=== PATIENT | male | born 1930 | race Caucasian/White ===

== ENCOUNTER 2016-11-25 07:50 | Day surgery (SDC) | payer MEDICARE, OTHER ==
[~2016-11-25] VITALS: Ht 152.4 cm; Wt 53.2 kg
[2016-11-25 09:04] VITALS: Ht 152.4 cm; Wt 53.2 kg
[2016-11-25] MEDS ORDERED: [UNRECOGNIZED DRUG - OTHER] (09:10)
[2016-11-25] MEDS ORDERED: PROPOFOL 20 ML ONE (09:29)
[2016-11-25] MEDS ORDERED: LABETALOL HCL 20MG INJ ONE (09:37)
[2016-11-25 10:13] VITALS: BP 157/88; PULSE 55; RESP 15
--- NOTE | 2016-11-25 10:21 | OPPN ---
Date/Time of Note Date/Time of Note DATE: 11/25/16 TIME: 10:18 Operative Report Preoperative Diagnosis Change in bowel habit Weight loss Postoperative Diagnosis Internal hemorrhoids Poor prep No gross neoplasm is identified Operation/Procedure Performed Colonoscopy Surgeon see signature line internal medicine physician assistant None Anesthesia: MAC Estimated blood loss: none Transfusion Required none Specimen None Grafts/Implants none Complications none ELIZABET CASAS MD Nov 25, 2016 10:21
[2016-11-25 10:45] VITALS: BP 195/98; PULSE 54; RESP 14
--- NOTE | 2016-11-25 11:08 | GILP ---
DATE OF PROCEDURE: 11/25/2016 PROCEDURE PERFORMED: Colonoscopy. PREOPERATIVE DIAGNOSES: 1. Change in bowel habits. 2. Weight loss. POSTOPERATIVE DIAGNOSES: 1. Colonoscopy all the way to the cecum. 2. Poor prep, making the exam suboptimal. 3. Internal hemorrhoids. 4. No gross neoplasm was identified. INDICATION: Mr. Darryl Carrero is an 86-year-old male patient who noticed a sudden change in the bowel habit associated with weight loss. So, the patient was scheduled for colonoscopy for further evaluation. The procedure and possible complications were well explained to the patient and the family and consent was obtained. DESCRIPTION OF PROCEDURE: Under influence of anesthesia, the colonoscope was carefully introduced in the rectum, and under direct vision, it was advanced all the way to the cecum. FINDINGS: The patient had poor prep making the exam somewhat suboptimal. He was noted to have internal hemorrhoids. No gross neoplasm was identified. He tolerated the procedure very well. There was no complication from the procedure. At the end of procedure, he was awake with stable vital signs and he was discharged home in the care of his family. IMPRESSION: Please see postop diagnoses. PLAN: 1. High-fiber diet. 2. Because of the patient's age, he will not need another screening colonoscopy. Dictated By: MD HEATHER Cee/sara/rashmi /Document#: [id number]
--- NOTE | 2016-11-26 13:00 | CONS ---
PATIENT NAME : DARRYL GONZÁLES DATE OF ADMISSION: 11/10/2016 DATE OF CONSULTATION: I thank you very much for this kind referral. HISTORY OF PRESENT ILLNESS: Mr. Darryl Krause is an 86- year-old male patient who has been referred to me for further evaluation of change in the bowel habits with constipation. Patient also say his appetite has been somewhat poor, and he has been losing weight. There is no past medical history of colon neoplasm. He does not have any upper abdominal pain. He complains of heartburn, and he is on some medication for that. No history of gallstones or liver disease. Not a hypertensive or diabetic. No heart disease or lung problem. No kidney disease. SOCIAL HISTORY: Nonsmoker. No alcohol abuse. FAMILY HISTORY: No family history of gastrointestinal tract neoplasm. ALLERGIES: NO DRUG ALLERGY. MEDICATION: None. PHYSICAL EXAMINATION: VITAL SIGNS: He is 4 feet 7 inches tall and weighs 116 pounds. BMI 21. Blood pressure 110/74. CARDIAC: Normal heart sounds. LUNGS: Clear. ABDOMEN: Soft. No masses. Normal bowel sounds. NEUROLOGIC: Normal neurological exam. IMPRESSION: 1. Change in the bowel habits with constipation. 2. Weight loss. 3. Gastroesophageal reflux disease. PLAN: Colonoscopy for further evaluation. The procedure and possible complications were well explained to the patient and the family understand and consent to the procedure I thank you once again. Dictated By: MD HEATHER Cee/sara/ayad /Document#: [id number] CC: Ervin Lim MD;*[facility]*
== END 2016-11-25 14:36 | disposition home or self-care (01) ==
LOC: GIL 07:50
PROVIDERS: ATTEND Internal Medicine Gastroenterology
DX: R19.4 Change in bowel habit (principal); K64.8 Other hemorrhoids